=== PATIENT | female | born 1935 | race Caucasian/White ===

== ENCOUNTER → 2016-07-03 | Outpatient (CLI) | payer MEDICARE ==
--- NOTE | 2016-07-03 14:35 | MM ---
Reason for exam: follow-up at short interval from prior study. Last mammogram was performed 6 months ago. History: Patient is postmenopausal. Family history of breast cancer in sister at age 68 and breast cancer in maternal cousin at age 50. Benign right US cyst aspiration ea add of the right breast, May 28, 2007. Benign right US cyst aspiration of the right breast, May 28, 2007. Right US Cyst Aspiration of the right breast, May 25, 2006. Benign US right guided mammotome of the right breast, May 25, 2006. Cyst aspiration. Core biopsy. Took estrogen for 18 years beginning at age 55. Physical Findings: Nurse did not find any significant physical abnormalities on exam. MG 3D Diag Mammo W/Cad ALEJANDRO Bilateral CC and MLO view(s) were taken. Prior study comparison: December 20, 2015, left breast MG 3d diag mammo w/cad LT. June 04, 2015, bilateral MG 3d diag mammo w/cad ALEJANDRO. May 26, 2014, bilateral MG diagnostic mammo w CAD ALEJANDRO. Finding: There are typically benign diffuse/scattered, linear, coarse calcifications in both breasts. Previous mammotome biopsy in the right breast. No significant changes in finding since December 20, 2015, June 04, 2015, and May 26, 2014. These results were verbally communicated with the patient and result sheet given to the patient on 07/03/16. ASSESSMENT: Benign, BI-RAD 2 RECOMMENDATION: Routine screening mammogram of both breasts in 1 year.
== END | disposition home or self-care (01) ==
LOC: RADMAMWWP 13:30
PROVIDERS: ATTEND Family Medicine
DX: R92.8 Other abnormal and inconclusive findings on diagnostic imaging of breast (principal)
CPT/HCPCS: G0204; G0279

== ENCOUNTER 2016-11-15 16:47 | Emergency (ER) | payer MEDICARE ==
[2016-11-15] MEDS ORDERED: SODIUM CHLORIDE 0.9% 500 ML IV STA (17:10)
[2016-11-15] MEDS ORDERED: MECLIZINE 12.5 MG TAB PO STA (17:10)
[2016-11-15] MEDS ORDERED: METOCLOPRAMIDE 5 MG/ML 2 ML VIAL IVP STA (17:10)
--- NOTE | 2016-11-15 17:21 | ED ---
Dizziness HPI - General Chief Complaint: Dizziness Stated Complaint: vertigo and vomiting Time Seen by Provider: 11/15/16 17:03 Source: patient, RN notes reviewed Mode of arrival: wheelchair Limitations: no limitations - History of Present Illness Initial Comments: 81-year-old female presents emergency Department chief complaint of dizziness and vomiting. Patient states that approximately 20 minutes prior to arrival she states that she went to lay down for a nap and states when she laid back she had severe dizziness and states that the room was spinning. Patient states that she was barely able to walk because she was so dizzy. Patient states she has had some vomiting. Patient denies any focal weakness, headache, chest pain , shortness of breath, fever or chills. Patient states she has had some similar episodes these in the past which she's never had any emesis associated with it. Patient denies any abdominal pain, neck pain, cold-like symptoms, palpitations, ear pain - Related Data Home Medications Medication Instructions Recorded Confirmed Allopurinol [Zyloprim] 1 tab PO DIRECTED 11/15/16 11/15/16 Levothyroxine Sodium [Synthroid] 1 tab PO DAILY 11/15/16 11/15/16 Previous Rx's Medication Instructions Recorded Ciprofloxacin HCl [Cipro] 500 mg PO Q12HR #14 tablet 11/15/16 Meclizine [Antivert] 25 mg PO TID PRN #15 tab 11/15/16 Ondansetron Odt [Zofran Odt] 4 mg PO Q8HR PRN #10 tab 11/15/16 Allergies Allergy/AdvReac Type Severity Reaction Status Date / Time No Known Allergies Allergy Verified 11/15/16 16:57 Review of Systems ROS Statement: Those systems with pertinent positive or pertinent negative responses have been documented in the HPI. ROS Other: All systems not noted in ROS Statement are negative. Past Medical History Past Medical History: Thyroid Disorder Additional Past Medical History / Comment(s): vertigo History of Any Multi-Drug Resistant Organisms: None Reported Past Surgical History: Hysterectomy, Orthopedic Surgery Past Psychological History: No Psychological Hx Reported Smoking Status: Never smoker Past Alcohol Use History: None Reported Past Drug Use History: None Reported General Exam Limitations: no limitations General appearance: alert, in no apparent distress Head exam: Present: atraumatic, normocephalic, normal inspection Eye exam: Present: normal appearance, PERRL, EOMI. Absent: scleral icterus, conjunctival injection, periorbital swelling ENT exam: Present: normal exam, normal oropharynx, mucous membranes moist, TM's normal bilaterally, normal external ear exam Neck exam: Present: normal inspection, full ROM. Absent: tenderness, meningismus, lymphadenopathy Respiratory exam: Present: normal lung sounds bilaterally. Absent: respiratory distress, wheezes, rales, rhonchi, stridor Cardiovascular Exam: Present: regular rate, normal rhythm, normal heart sounds. Absent: systolic murmur, diastolic murmur, rubs, gallop, clicks Extremities exam: Present: normal inspection, full ROM, normal capillary refill , other (Full strength and equal strength of upper and lower extremities). Absent: tenderness, pedal edema, joint swelling, calf tenderness Back exam: Present: full ROM. Absent: tenderness Neurological exam: Present: alert, oriented X3, CN II-XII intact, reflexes normal, other (Finger to nose intact bilaterally without over shooting). Absent : motor sensory deficit Skin exam: Present: warm, dry, intact, normal color. Absent: rash Course Vital Signs 11/15/16 11/15/16 11/15/16 16:53 17:24 18:34 Temperature 98.4 F 98.0 F Pulse Rate 65 63 62 Respiratory 20 16 16 Rate Blood Pressure 195/79 162/72 170/75 O2 Sat by Pulse 93 L 96 95 Oximetry - Reevaluation(s) Reevaluation #1: 11/15/16 18:40 Patient was updated on results at this time. Patient states that she does feel improved compared to when she came in. She states the dizziness is still slightly present but much better. Patient states nausea has resolved. EKG Findings - EKG Comments: EKG Findings:: EKG performed at 17:36 normal sinus rhythm with a rate of 60 [place] interval 166 QRS duration 80 QT/QTc 468/468 Medical Decision Making - Medical Decision Making This is an 81-year-old female presented for dizziness and vomiting. Patient's lab work essentially unremarkable except for a UTI. Patient's CT shows atrophy but no acute changes. Patient symptoms are consistent with vertigo in which she also has had episodes in the past. Patient was placed on antibiotics for urinary tract infection. Patient will also be discharged with antiemetics. - Lab Data Result diagrams: 11/15/16 17:10 11/15/16 17:10 Lab Results 11/15/16 11/15/16 11/15/16 Range/Units 17:10 17:10 17:10 WBC 8.0 (3.8-10.6) k/uL RBC 4.15 (3.80-5.40) m/uL Hgb 12.8 (11.4-16.0) gm/dL Hct 38.6 (34.0-46.0) % MCV 92.9 (80.0-100.0) fL MCH 30.9 (25.0-35.0) pg MCHC 33.2 (31.0-37.0) g/dL RDW 14.6 (11.5-15.5) % Plt Count 208 (150-450) k/uL Neutrophils % 50 % Lymphocytes % 38 % Monocytes % 5 % Eosinophils % 3 % Basophils % 1 % Neutrophils # 4.0 (1.3-7.7) k/uL Lymphocytes # 3.0 (1.0-4.8) k/uL Monocytes # 0.4 (0-1.0) k/uL Eosinophils # 0.2 (0-0.7) k/uL Basophils # 0.1 (0-0.2) k/uL Sodium 143 (137-145) mmol/L Potassium 3.7 (3.5-5.1) mmol/L Chloride 103 (98-107) mmol/L Carbon Dioxide 32 H (22-30) mmol/L Anion Gap 8 mmol/L BUN 18 H (7-17) mg/dL Creatinine 0.78 (0.52-1.04) mg/dL Est GFR (MDRD) Af Amer >60 (>60 ml/min/1.73 sqM) Est GFR (MDRD) Non-Af >60 (>60 ml/min/1.73 sqM) Glucose 98 (74-99) mg/dL Calcium 9.2 (8.4-10.2) mg/dL Total Bilirubin 0.7 (0.2-1.3) mg/dL AST 27 (14-36) U/L ALT 30 (9-52) U/L Alkaline Phosphatase 62 (38-126) U/L Troponin I <0.012 (0.000-0.034) ng/mL Total Protein 6.8 (6.3-8.2) g/dL Albumin 4.0 (3.5-5.0) g/dL Urine Color Urine Appearance (Clear) Urine pH (5.0-8.0) Ur Specific [place] (1.001-1.035) Urine Protein (Negative) Urine Glucose (UA) (Negative) Urine Ketones (Negative) Urine Blood (Negative) Urine Nitrite (Negative) Urine Bilirubin (Negative) Urine Urobilinogen (<2.0) mg/dL Ur Leukocyte Esterase (Negative) Urine WBC (0-5) /hpf Ur Squamous Epith Cells (0-4) /hpf Urine Bacteria (None) /hpf 11/15/16 Range/Units 18:00 WBC (3.8-10.6) k/uL RBC (3.80-5.40) m/uL Hgb (11.4-16.0) gm/dL Hct (34.0-46.0) % MCV (80.0-100.0) fL MCH (25.0-35.0) pg MCHC (31.0-37.0) g/dL RDW (11.5-15.5) % Plt Count (150-450) k/uL Neutrophils % % Lymphocytes % % Monocytes % % Eosinophils % % Basophils % % Neutrophils # (1.3-7.7) k/uL Lymphocytes # (1.0-4.8) k/uL Monocytes # (0-1.0) k/uL Eosinophils # (0-0.7) k/uL Basophils # (0-0.2) k/uL Sodium (137-145) mmol/L Potassium (3.5-5.1) mmol/L Chloride (98-107) mmol/L Carbon Dioxide (22-30) mmol/L Anion Gap mmol/L BUN (7-17) mg/dL Creatinine (0.52-1.04) mg/dL Est GFR (MDRD) Af Amer (>60 ml/min/1.73 sqM) Est GFR (MDRD) Non-Af (>60 ml/min/1.73 sqM) Glucose (74-99) mg/dL Calcium (8.4-10.2) mg/dL Total Bilirubin (0.2-1.3) mg/dL AST (14-36) U/L ALT (9-52) U/L Alkaline Phosphatase (38-126) U/L Troponin I (0.000-0.034) ng/mL Total Protein (6.3-8.2) g/dL Albumin (3.5-5.0) g/dL Urine Color Yellow Urine Appearance Clear (Clear) Urine pH 6.0 (5.0-8.0) Ur Specific [place] 1.012 (1.001-1.035) Urine Protein Negative (Negative) Urine Glucose (UA) Negative (Negative) Urine Ketones Negative (Negative) Urine Blood Negative (Negative) Urine Nitrite Negative (Negative) Urine Bilirubin Negative (Negative) Urine Urobilinogen <2.0 (<2.0) mg/dL Ur Leukocyte Esterase Large H (Negative) Urine WBC 28 H (0-5) /hpf Ur Squamous Epith Cells <1 (0-4) /hpf Urine Bacteria Rare H (None) /hpf Disposition Clinical Impression: Vertigo, UTI (urinary tract infection), Nausea & vomiting Disposition: HOME SELF-CARE Condition: Stable Instructions: Dizziness (ED) Additional Instructions: Please return to the Emergency Department if symptoms worsen or any other concerns. Prescriptions: Ciprofloxacin HCl [Cipro] 500 mg PO Q12HR #14 tablet Meclizine [Antivert] 25 mg PO TID PRN #15 tab PRN Reason: Vertigo Ondansetron Odt [Zofran Odt] 4 mg PO Q8HR PRN #10 tab PRN Reason: Nausea Referrals: Olesya Juarez MD [Primary Care Provider] - 1-2 days Time of Disposition: 18:43
[2016-11-15 17:26] VITALS: RESP 16
[2016-11-15 17:53] LABS: Basophils # (A) 0.1 k/uL (0-0.2); Basophils % (A) 1 %; CH 31.9; CHCM 34.6; Eosinophils # (A) 0.2 k/uL (0-0.7); Eosinophils % (A) 3 %; HCT 38.6 % (34.0-46.0); HGB 12.8 gm/dL (11.4-16.0); Luc % (Auto) 4; Lymphocytes % (A) 38 %; MCH 30.9 pg (25.0-35.0); MCHC 33.2 g/dL (31.0-37.0); MCV 92.9 fL (80.0-100.0); Mean Platelet Volume 7.6; Monocytes # (A) 0.4 k/uL (0-1.0); Monocytes % (A) 5 %; Neutrophils % (A) 50 %; RBC 4.15 m/uL (3.80-5.40); RDW 14.6 % (11.5-15.5); WBC (Perox) 8.35
[2016-11-15 18:04] LABS: INR 1.1 (<1.1); Prothrombin Time 10.7 sec (9.0-12.0)
[2016-11-15 18:13] LABS: ALT 30 U/L (9-52); AST 27 U/L (14-36); Alkaline Phosphatase 62 U/L (38-126); Anion Gap 8 mmol/L; Blood Urea Nitrogen 18 mg/dL (7-17); Calcium 9.2 mg/dL (8.4-10.2); Carbon Dioxide 32 mmol/L (22-30); Chloride 103 mmol/L (98-107); Glucose 98 mg/dL (74-99); Non-African American GFR(MDRD) >60 (>60 ml/min/1.73 sqM); Potassium 3.7 mmol/L (3.5-5.1); Sodium 143 mmol/L (137-145); Total Bilirubin 0.7 mg/dL (0.2-1.3); Total Protein 6.8 g/dL (6.3-8.2)
[2016-11-15 18:21] LABS: Appearance,Urine Clear (Clear); Bacteria,Urine Rare /hpf; Bilirubin,Urine Negative (Negative); Glucose,Urine (UA) Negative (Negative); Ketones,Urine Negative (Negative); Leukocyte Esterase,Urine Large (Negative); Nitrite,Urine Negative (Negative); Particle Count 2328; Protein,Urine Negative (Negative); Specific Gravity,Urine 1.012 (1.001-1.035); Squamous Epithelial Cell,Urine <1 /hpf (0-4); UA Billing (MACRO vs. MICRO) MICRO; Urobilinogen,Urine <2.0 mg/dL (<2.0); WBC,Urine 28 /hpf (0-5)
--- NOTE | 2016-11-15 18:33 | CT ---
EXAMINATION TYPE: CT brain wo con DATE OF EXAM: 11/15/2016 HISTORY: Dizziness today. CT DLP: 945.5 mGycm. Automated Exposure Control for Dose Reduction was Utilized. TECHNIQUE: CT scan of the head is performed without contrast. COMPARISON: MRI brain August 15, 2015. FINDINGS: There is no acute intracranial hemorrhage or midline shift identified. There is diffuse v entricular and sulcal prominence consistent with diffuse age-related cerebral atrophy. There is low- attenuation in the periventricular white matter consistent with chronic small vessel ischemic change. This is better seen on recent MRI versus CT. The globes are intact and the visualized sinuses are cl ear. IMPRESSION: No acute intracranial hemorrhage or midline shift. There is mild diffuse age-related ce rebral atrophy and moderate chronic small vessel ischemic change redemonstrated. No significant new f inding is identified.
[2016-11-15] MEDS ORDERED: CIPROFLOXACIN HCL 500 MG TAB PO STA (18:43)
[2016-11-15 18:57] VITALS: BP 164/75; PULSE 63; TEMP 97.1
== END 2016-11-15 18:56 | disposition home or self-care (01) ==
LOC: EC 16:47
DX: R42 Dizziness and giddiness (principal); N39.0 Urinary tract infection, site not specified; R11.2 Nausea with vomiting, unspecified; E07.9 Disorder of thyroid, unspecified; Z79.899 Other long term (current) drug therapy
CPT/HCPCS: 99284; 96374; 96361; 36415; 93005; 80053; 84484; 85025; 85610; 81001; 70450; J2765

== ENCOUNTER → 2017-08-19 | Outpatient (CLI) | payer MEDICARE ==
--- NOTE | 2017-08-19 16:41 | BD ---
EXAMINATION TYPE: MG DEXA axial skeleton. DATE OF EXAM: 08/19/2017 COMPARISON: NONE CLINICAL HISTORY: 81-year-old female postmenopausal screening Height: 65 Weight: 178.5 FRAX RISK QUESTIONS: Alcohol (3 or more units per day): no Family History (Parent hip fracture): no Glucocorticoids (More than 3mos): no (Ex: prednisone, prednisolone, methylprednisolone, dexamethasone, and hydrocortisone). History of Fracture in Adulthood: no Secondary Osteoporosis: 1. Type 1 Diabetes: no 2. Hyperthyroidism: no 3. Menopause before 45: yes 4. Malnutrition: no 5. Chronic liver disease: no Rheumatoid Arthritis: no Current Tobacco Use: no RISK FACTORS HISTORY OF: Surgery to Spine/Hip(right/left)/Wrist (right/left): no Family History of Osteoporosis: no Active: yes Diet low in dairy products/other sources of calcium: yes Postmenopausal woman: hysterectomy 1972 Lost more than 2 inches in height since high school: no Frequent falls: no Adrenal Insufficiency: no MEDICATIONS: lasix Thyroid Medications: thyroid Additional History: EXAM MEASUREMENTS: Bone mineral densitometry was performed using the [employer] System. Bone mineral density as measured about the Lumbar spine is: ----- L1-L4(G/cm2): 1.121 T Score Values are as follows: ----- L2: -0.1 ----- L3: 0.7 ----- L4: -0.9 ----- L1-L4: -0.5 Bone mineral density has:increased 2.5 % since study of: 08.03.2002 Bone mineral density about the R hip (g/cm2): 0.954 Bone mineral density about the L hip (g/cm2): 1.001 T Score values are as follows: -----R Neck: -0.6 -----L Neck: -0.3 -----R Total: 0.0 -----L Total: 0.0 Bone mineral density has: decreased -2.9 % since study of: 08.03.2002 IMPRESSION: Normal (Values between +1 and -1 indicate normal bone mass). Consider repeating this study in 5 year s or sooner if there is some new clinical indication. NOTE: T-SCORE=SD OF THE YOUNG ADULT MEAN.
--- NOTE | 2017-08-20 14:31 | MM ---
Reason for exam: screening (asymptomatic). Last mammogram was performed 1 year and 2 months ago. History: Patient is postmenopausal. Family history of breast cancer in sister at age 68 and breast cancer in maternal cousin at age 50. Benign right US cyst aspiration ea add of the right breast, May 28, 2007. Benign right US cyst aspiration of the right breast, May 28, 2007. Right US Cyst Aspiration of the right breast, May 25, 2006. Benign US right guided mammotome of the right breast, May 25, 2006. Cyst aspiration. Core biopsy. Took estrogen for 18 years beginning at age 55. Physical Findings: A clinical breast exam by your physician is recommended on an annual basis and results should be correlated with mammographic findings. MG 3D Screening Mammo W/Cad Bilateral CC and MLO view(s) were taken. Prior study comparison: July 03, 2016, bilateral MG 3d diag mammo w/cad ALEJANDRO. December 20, 2015, left breast MG 3d diag mammo w/cad LT. The breast tissue is heterogeneously dense. This may lower the sensitivity of mammography. Finding: There are new fine, grouped/clustered calcifications in the upper quadrant, middle position of the right breast on MLO view. Previous mammotome biopsy in the right breast. New finding since July 03, 2016 and December 20, 2015. ASSESSMENT: Incomplete: need additional imaging evaluation, BI-RAD 0 RECOMMENDATION: Special view mammogram of the right breast. If lesion persists on supplemental views, image directed ultrasound is recommended. [facility] will attempt to contact patient to return for supplemental views and ultrasound if indicated.
== END | disposition home or self-care (01) ==
LOC: RADMAMWWP 13:19
PROVIDERS: ATTEND Family Medicine
DX: Z12.31 Encounter for screening mammogram for malignant neoplasm of breast (principal); Z78.0 Asymptomatic menopausal state
CPT/HCPCS: 77063; 77067; 77080

== ENCOUNTER → 2017-08-25 | Outpatient (CLI) | payer MEDICARE ==
--- NOTE | 2017-08-26 08:06 | MM ---
Reason for exam: additional evaluation requested from abnormal screening. Last mammogram was performed less than 1 month ago. History: Patient is postmenopausal. Family history of breast cancer in sister at age 68 and breast cancer in maternal cousin at age 50. Benign right US cyst aspiration ea add of the right breast, May 28, 2007. Benign right US cyst aspiration of the right breast, May 28, 2007. Right US Cyst Aspiration of the right breast, May 25, 2006. Benign US right guided mammotome of the right breast, May 25, 2006. Cyst aspiration. Core biopsy. Took estrogen for 18 years beginning at age 55. Physical Findings: Nurse did not find any significant physical abnormalities on exam. MG 3D Work Up W/Cad RT CC with magnification and MLO with magnification view(s) were taken of the right breast. Prior study comparison: August 19, 2017, bilateral MG 3d screening mammo w/cad. July 03, 2016, bilateral MG 3d diag mammo w/cad ALEJANDRO. The breast tissue is heterogeneously dense. This may lower the sensitivity of mammography. There are benign appearing diffuse calcifications with no persistent suspicious group of calcifications on additional magnification views. These results were verbally communicated with the patient and result sheet given to the patient on 08/25/17. ASSESSMENT: Benign, BI-RAD 2 RECOMMENDATION: Return to routine screening mammogram schedule for both breasts. Manage patient on a clinical basis. If nipple discharge persists or reoccurs ultrasound and possible ductogram are recommended.
== END | disposition home or self-care (01) ==
LOC: RADMAMWWP 14:06
PROVIDERS: ATTEND Family Medicine
DX: R92.8 Other abnormal and inconclusive findings on diagnostic imaging of breast (principal)
CPT/HCPCS: 77065; G0279

== ENCOUNTER → 2018-09-20 | Outpatient (CLI) | payer MEDICARE ==
--- NOTE | 2018-09-21 11:44 | MM ---
Reason for exam: screening (asymptomatic). Last mammogram was performed 1 year and 1 month ago. History: Patient is postmenopausal. Family history of breast cancer in sister at age 68 and breast cancer in maternal cousin at age 50. Benign right US cyst aspiration ea add of the right breast, May 28, 2007. Benign right US cyst aspiration of the right breast, May 28, 2007. Right US Cyst Aspiration of the right breast, May 25, 2006. Benign US right guided mammotome of the right breast, May 25, 2006. Cyst aspiration. Core biopsy. Took estrogen for 18 years beginning at age 55. Physical Findings: A clinical breast exam by your physician is recommended on an annual basis and results should be correlated with mammographic findings. MG 3D Screening Mammo W/Cad Bilateral CC and MLO view(s) were taken. Prior study comparison: August 25, 2017, right breast MG 3d work up w/cad RT. August 19, 2017, bilateral MG 3d screening mammo w/cad. The breast tissue is heterogeneously dense. This may lower the sensitivity of mammography. There is a central inner left mass with circumscribed borders. There are similar appearing bilateral diffuse calcifications. Left retroareolar distortion. Right lateral middle depth asymmetry. Bilateral biopsy markers present. ASSESSMENT: Incomplete: need additional imaging evaluation, BI-RAD 0 RECOMMENDATION: Special view mammogram of both breasts. If lesion persists on supplemental views, image directed ultrasound is recommended. [facility] will attempt to contact patient to return for supplemental views and ultrasound if indicated.
== END | disposition home or self-care (01) ==
LOC: RADMAMWWP 08:44
PROVIDERS: ATTEND Family Medicine
DX: Z12.31 Encounter for screening mammogram for malignant neoplasm of breast (principal)
CPT/HCPCS: 77063; 77067

== ENCOUNTER → 2018-09-27 | Outpatient (CLI) | payer MEDICARE ==
--- NOTE | 2018-09-28 08:25 | MM ---
Reason for exam: additional evaluation requested from abnormal screening. Last mammogram was performed less than 1 month ago. History: Patient is postmenopausal. Family history of breast cancer in sister at age 68 and breast cancer in maternal cousin at age 50. Benign right US cyst aspiration ea add of the right breast, May 28, 2007. Benign right US cyst aspiration of the right breast, May 28, 2007. Right US Cyst Aspiration of the right breast, May 25, 2006. Benign US right guided mammotome of the right breast, May 25, 2006. Cyst aspiration. Core biopsy. Took estrogen for 18 years beginning at age 55. Physical Findings: Nurse did not find any significant physical abnormalities on exam. MG 3D Work Up W/Cad ALEJANDRO Bilateral spot compression CC and LM view(s) were taken. Spot compression MLO view(s) were taken of the left breast. Prior study comparison: September 20, 2018, bilateral MG 3d screening mammo w/cad. August 25, 2017, right breast MG 3d work up w/cad RT. The breast tissue is heterogeneously dense. This may lower the sensitivity of mammography. Previous mammotome biopsy in the right breast. There is no discrete abnormality including area of concern in left subareolar. Stable density left posterior breast. Right breast density disperses. This finding is changed when compared with previous exams. These results were verbally communicated with the patient and result sheet given to the patient on 09/27/18. ASSESSMENT: Probably benign, BI-RAD 3 RECOMMENDATION: Follow-up diagnostic mammogram of both breasts in 6 months. Manage on a clinical basis with regard to left nipple discharge and inversion.
== END ==
LOC: RADMAMWWP 14:50
PROVIDERS: ATTEND Family Medicine
DX: R92.8 Other abnormal and inconclusive findings on diagnostic imaging of breast (principal)
CPT/HCPCS: 77066; G0279; 77062

== ENCOUNTER → 2019-05-30 | Outpatient (CLI) | payer MEDICARE ==
--- NOTE | 2019-05-30 10:58 | MM ---
Reason for exam: follow-up at short interval from prior study. Last mammogram was performed 8 months ago. History: Patient is postmenopausal. Family history of breast cancer in sister at age 68 and breast cancer in maternal cousin at age 50. Benign right US cyst aspiration ea add of the right breast, May 28, 2007. Benign right US cyst aspiration of the right breast, May 28, 2007. Right US Cyst Aspiration of the right breast, May 25, 2006. Benign US right guided mammotome of the right breast, May 25, 2006. Cyst aspiration. Core biopsy. Took estrogen for 18 years beginning at age 55. Physical Findings: Nurse did not find any significant physical abnormalities on exam. MG 3D Diag Mammo W/Cad ALEJANDRO Bilateral CC and MLO view(s) were taken. XCCL view(s) were taken of the right breast. Prior study comparison: September 27, 2018, bilateral MG 3d work up w/cad ALEJANDRO. September 20, 2018, bilateral MG 3d screening mammo w/cad. The breast tissue is heterogeneously dense. This may lower the sensitivity of mammography. Stable benign bilateral breast calcifications. Fat necrosis calcifications at the right axillary tail corresponds to the site of pain. Stable distortion medial anterior left breast from prior excision. These results were verbally communicated with the patient and result sheet given to the patient on 05/30/19. ASSESSMENT: Benign, BI-RAD 2 RECOMMENDATION: Routine screening mammogram of both breasts in 1 year. Manage on a clinical basis with regard to patient's pain at the right axillary tail. Corresponds to fat necrosis calcifications.
== END | disposition home or self-care (01) ==
LOC: RADMAMWWP 09:27
PROVIDERS: ATTEND Family Medicine
DX: R92.8 Other abnormal and inconclusive findings on diagnostic imaging of breast (principal)
CPT/HCPCS: 77062; 77066

== ENCOUNTER → 2020-09-07 | Outpatient (CLI) | payer MEDICARE | END | disposition home or self-care (01) | LOC: LABWHC1 13:09 | PROVIDERS: ATTEND Family Medicine | DX: Z12.31 Encounter for screening mammogram for malignant neoplasm of breast (principal) | CPT/HCPCS: 77063; 77067 ==

== ENCOUNTER → 2021-04-29 | Outpatient (CLI) | payer MEDICARE ==
[2021-04-29 17:50] LABS: African American GFR (CKD) >90 (>60 ml/min/1.73 sqM); Blood Urea Nitrogen 11 mg/dL (7-17); Non-African American GFR(CKD) 79 (>60 ml/min/1.73 sqM)
--- NOTE | 2021-04-29 22:05 | CT ---
EXAMINATION TYPE: CT brain wo/w con DATE OF EXAM: 04/29/2021 COMPARISON: CT brain November 15, 2016 HISTORY: MEMORY LOSS, mild cognitive impairment. CT DLP: 1998.5 mGycm Automated exposure control for dose reduction was used. CONTRAST: CT scan of the head is performed without and with IV Contrast, patient injected with 100 mL of Isovue 300. FINDINGS: Noncontrast images show no acute intracranial hemorrhage or midline shift. Mild to moderate ventricul ar and sulcal prominence greatest over the superior bilateral frontal lobes. Mild low attenuation in the deep and periventricular white matter. Postcontrast images show no suspicious enhancing masses. S cleral calcification left globe redemonstrated. Tiny mucous retention cyst or polyp in the left sphen oid sinus. Some dependent fluid or posterior mucosal thickening in the right sphenoid sinus redemonst rated slightly more prominent. IMPRESSION: Mild to moderate diffuse cerebral atrophy greatest over the bilateral frontal lobes with mild chronic small vessel ischemic change redemonstrated. No suspicious enhancement or enhancing mass es.
== END | disposition home or self-care (01) ==
LOC: RADCTMAIN 16:49
PROVIDERS: ATTEND Family Medicine
DX: G31.9 Degenerative disease of nervous system, unspecified (principal); I67.82 Cerebral ischemia
CPT/HCPCS: 82565; 84520; 70470; 36415; Q9967

== ENCOUNTER → 2021-09-17 | Outpatient (CLI) | payer MEDICARE ==
--- NOTE | 2021-09-18 15:06 | MM ---
Reason for exam: screening (asymptomatic). Last mammogram was performed 1 year ago. History: Patient is postmenopausal. Family history of breast cancer in sister at age 68 and breast cancer in maternal cousin at age 50. Benign right US cyst aspiration ea add of the right breast, May 28, 2007. Benign right US cyst aspiration of the right breast, May 28, 2007. Right US Cyst Aspiration of the right breast, May 25, 2006. Benign US right guided mammotome of the right breast, May 25, 2006. Cyst aspiration. Core biopsy. Benign excisional biopsy of both breasts. Took estrogen for 18 years beginning at age 55. Physical Findings: A clinical breast exam by your physician is recommended on an annual basis and results should be correlated with mammographic findings. MG 3D Screening Mammo W/Cad Bilateral CC and MLO view(s) were taken. Prior study comparison: September 07, 2020, bilateral MG 3d screening mammo w/cad. May 30, 2019, bilateral MG 3d diag mammo w/cad ALEJANDRO. The breast tissue is heterogeneously dense. This may lower the sensitivity of mammography. Stable vascular and secretory calcifications bilaterally. There is chronic nodularity in the left breast. No significant changes when compared with prior studies. ASSESSMENT: Benign, BI-RAD 2 RECOMMENDATION: Routine screening mammogram of both breasts in 1 year.
== END | disposition home or self-care (01) ==
LOC: RADMAMWWP 10:54
PROVIDERS: ATTEND Family Medicine
DX: Z12.31 Encounter for screening mammogram for malignant neoplasm of breast (principal); Z78.0 Asymptomatic menopausal state; Z80.3 Family history of malignant neoplasm of breast
CPT/HCPCS: 77063; 77067

== ENCOUNTER → 2021-10-08 | Outpatient (CLI) | payer MEDICARE | END | disposition home or self-care (01) | LOC: LABWHC1 09:33 | PROVIDERS: ATTEND Nurse Practitioner | DX: E03.9 Hypothyroidism, unspecified (principal); N39.0 Urinary tract infection, site not specified | CPT/HCPCS: 36415; 84443; 87086 ==

== ENCOUNTER → 2022-09-19 | Outpatient (CLI) | payer MEDICARE ==
--- NOTE | 2022-09-22 08:04 | MM ---
Reason for Exam: Screening (asymptomatic). Last screening mammogram was performed 12 month(s) ago. Patient History: Menarche at age 12. First Full-Term at age 19. Hysterectomy at age 36. Postmenopausal. Estrogen, starting at age 55 for 18 years. Core Biopsy. Cyst Aspiration. Bilateral Benign Excisional Biopsy. 05/28/2007, Benign Cyst Aspiration on the right side. 05/28/2007, Benign Cyst Aspiration on the right side. 05/25/2006, Benign Core Biopsy on the right side. Maternal cousin had breast cancer, age 50. Sister had breast cancer, age 68. Prior Study Comparison: 05/30/2019 Bilateral Diagnostic Mammogram, [facility]. 09/07/2020 Bilateral Screening Mammogram, [facility]. 09/17/2021 Bilateral Screening Mammogram, [facility]. Tissue Density: The breast tissue is heterogeneously dense. This may lower the sensitivity of mammography. Findings: Analyzed By CAD. There is no suspicious group of microcalcifications or new suspicious mass in either breast. Overall Assessment: Benign, BI-RAD 2 Management: Screening Mammogram of both breasts in 1 year. A clinical breast exam by your physician is recommended on an annual basis and results should be correlated with mammographic findings. Electronically signed and approved by: Adriel Ledbetter M.D. Radiologis
== END | disposition home or self-care (01) ==
LOC: RADMAMWWP 13:29
PROVIDERS: ATTEND Family Medicine
DX: Z12.31 Encounter for screening mammogram for malignant neoplasm of breast (principal); Z78.0 Asymptomatic menopausal state; Z80.3 Family history of malignant neoplasm of breast
CPT/HCPCS: 77063; 77067